=== PATIENT | male | born 1950 | race Caucasian/White ===

== ENCOUNTER → 2021-12-31 | Outpatient (CLI) | payer MEDICARE ==
[2021-12-31 18:40] LABS: Basophils # (A) 0.05 X 10*3/uL (0.00-0.10); Basophils % (A) 0.8 %; Eosinophils # (A) 0.21 X 10*3/uL (0.04-0.35); Eosinophils % (A) 3.3 %; HCT 45.6 % (39.6-50.0); HGB 15.3 g/dL (13.0-17.0); Immature Grans, Automated 0.3 %; Lymphocytes # (A) 1.61 X 10*3/uL (0.90-5.00); Lymphocytes % (A) 25.7 %; MCH 29.7 pg (27.0-32.0); MCHC 33.6 g/dL (32.0-37.0); MCV 88.5 fL (80.0-97.0); Mean Platelet Volume 12.2 fL (9.5-12.2); Monocytes # (A) 0.72 X 10*3/uL (0.20-1.00); Monocytes % (A) 11.5 %; NRBC Per 100 WBC 0 /100 WBCS (0.0-0.0); Neutrophils # (A) 3.66 X 10*3/uL (1.80-7.70); Neutrophils % (A) 58.4 %; Platelet Count 213 X 10*3/uL (140-440); RBC 5.15 X 10*6/uL (4.40-5.60); RDW 12.9 % (11.5-14.5); WBC 6.27 X 10*3/uL (4.50-10.00)
== END | disposition home or self-care (01) ==
LOC: LABPAT 14:06
PROVIDERS: ATTEND Surgery
DX: Z01.812 Encounter for preprocedural laboratory examination (principal); K40.90 Unilateral inguinal hernia, without obstruction or gangrene, not specified as recurrent
CPT/HCPCS: 85025; 93005

== ENCOUNTER 2022-01-08 05:47 | Day surgery (SDC) | payer MEDICARE ==
[2022-01-06 15:21] VITALS: BMI 34.2
[~2022-01-08 05:47] MED LIST: ACETAMINOPHEN TAB 500 MG TAB PO PRN; HEPARIN SODIUM,PORCINE/PF 5,000 UNIT/0.5 ML SYRINGE SQ PRN; LACTATED RINGERS 1,000 ML IV SCH
[2022-01-08] MEDS ORDERED: ONDANSETRON 4 MG/2 ML VIAL ONE (06:17)
[2022-01-08 06:43] VITALS: TEMP 97.3
[2022-01-08 06:46] LABS: Glucose,Whole Blood 152 mg/dL (75-99)
[2022-01-08] MEDS ORDERED: DEXAMETHASONE SOD PHOSPHATE 4 MG/ML 1 ML VIAL IVP ONE (06:47)
[2022-01-08] MEDS ORDERED: MIDAZOLAM 2 MG/2 ML VIAL IVP ONE (07:14)
[2022-01-08] MEDS ORDERED: fentaNYL (PF) 50 MCG/ML 2 ML AMP IVP ONE (07:14)
[2022-01-08] MEDS ORDERED: SUCCINYLCHOLINE CHLORIDE VIAL 200 MG/10 ML VIAL IV ONE (07:46)
[2022-01-08] MEDS ORDERED: fentaNYL (PF) 50 MCG/ML 2 ML AMP ONE (07:46)
[2022-01-08] MEDS ORDERED: ROCURONIUM 10 MG/ML (5 ML VIAL) IV ONE (07:46)
[2022-01-08] MEDS ORDERED: ROPIVACAINE 5 MG/ML 30 ML VIAL ONE (07:46)
[2022-01-08] MEDS ORDERED: HYDROmorphone (PF) 1 MG/ML ONE (07:46)
[2022-01-08] MEDS ORDERED: NEOSTIGMINE 1 MG/ML 10 ML VIAL ONE (07:46)
[2022-01-08] MEDS ORDERED: KETAMINE 10 MG/ML 20 ML VIAL ONE (07:46)
[2022-01-08] MEDS ORDERED: GLYCOPYRROLATE 0.2 MG/ML 2 ML VIAL ONE (07:46)
[2022-01-08] MEDS ORDERED: LIDOCAINE 2% INJ 20 MG/ML (2 ML VIAL) ONE (07:46)
[2022-01-08] MEDS ORDERED: KETOROLAC 15 MG/ML 1 ML VIAL ONE (07:46)
[2022-01-08] MEDS ORDERED: PROPOFOL 10 MG/ML 20 ML VIAL IV ONE (07:46)
[2022-01-08] MEDS ORDERED: PHENYLEPHRINE-0.9% NACL SYG 1,000 MCG/10 ML SYRINGE ONE (07:46)
[2022-01-08] MEDS ORDERED: SODIUM CHLORIDE 0.9% (PF) 10 ML VIAL ONE (07:46)
[2022-01-08] MEDS ORDERED: MIDAZOLAM 2 MG/2 ML VIAL ONE (07:46)
--- NOTE | 2022-01-08 08:15 | P.ANPRN ---
Procedure Note - Anesthesia - Nerve Block Performed Bilateral Erector Spinae Time Out Performed: Yes (:13) Date of Procedure: 01/08/22 Procedure Start Time: Procedure Stop Time: Location of Patient: PreOp Indication: Acute Post-Operative Pain, Requested by Surgeon (Dr Nuñez) Sedation Type: Sedate with meaningful contact maintained Preparation: Sterile Prep Position: Prone Catheter: None Needle Types: Pajunk Needle Gauge: 21 Ultrasound used to visualize needle placement: Yes Ultrasound used to observe medication spread: Yes Injectate: 0.5% Ropivacaine (see comment for volume) (15cc + 10cc PF Normal saline each side) Blood Aspirated: No Pain Paresthesia on Injection Noted: No Resistance on Injection: Normal Image Stored and Saved: Yes Events: Uneventful and Well Tolerated
[2022-01-08] MEDS ORDERED: BUPIVACAINE (PF) 0.25% 30 ML VIAL SQ ONE (08:39)
[2022-01-08] MEDS ORDERED: LACTATED RINGERS 1,000 ML IV ONE ×3 (09:09→10:50)
[2022-01-08] MEDS ORDERED: HYDROmorphone 0.5 MG/0.5 ML SYRINGE IVP ONE ×2 (10:08→10:39)
[2022-01-08 10:10] VITALS: RESP 16
[2022-01-08] MEDS ORDERED: KETOROLAC 15 MG/ML 1 ML VIAL IVP ONE (10:11)
--- NOTE | 2022-01-08 11:01 | P.GSHP ---
History of Present Illness H&P Date: 01/08/22 Chief Complaint: Large scrotal left inguinal hernia This a 71-year-old male who's had complaints of left inguinal pain. Patient is a large left inguinal hernia which extends of the scrotum. Patient presents today for laparoscopic robotic repair of left inguinal hernia. The patient aware that he may recurrent open repair to the sizes hernia and that he also may require orchiectomy in order to repair the hernia. 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 Past Anesthesia/Blood Transfusion Reactions: No Reported Reaction Additional Past Anesthesia/Blood Transfusion Reaction / Comment(s): no hx blood transfusion Smoking Status: Never smoker - Past Family History Brother(s) Additional Family Medical History / Comment(s): 1 brother with aneurysm in brain-,1 brother with aneurysm in heart Medications and Allergies Home Medications Medication Instructions Recorded Confirmed Type Atorvastatin [Lipitor] 40 mg PO DAILY 01/06/22 01/08/22 History Ibuprofen [Motrin] 800 mg PO Q6H PRN 01/06/22 01/08/22 History amLODIPine [Norvasc] 10 mg PO QAM 01/06/22 01/08/22 History Acetaminophen Tab [Tylenol] 650 mg PO Q6H #30 tab 01/08/22 Rx Docusate [Colace] 100 mg PO BID #20 capsule 01/08/22 Rx Ibuprofen [Motrin] 600 mg PO Q6HR PRN #40 tab 01/08/22 Rx oxyCODONE HCL [OxyIR] 5 mg PO Q6H PRN 3 Days #10 tab 01/08/22 Rx Allergies Allergy/AdvReac Type Severity Reaction Status Date / Time No Known Allergies Allergy Verified 01/08/22 06:24 Surgical - Exam Vital Signs Temp Pulse Resp BP Pulse Ox 97.3 F L 77 20 156/65 95 01/08/22 06:29 01/08/22 06:29 01/08/22 06:29 01/08/22 06:29 01/08/22 06:29 - General well developed, well nourished, no distress - Eyes PERRL - ENT normal pinna - Neck no masses - Respiratory normal expansion - Cardiovascular Rhythm: regular - Abdomen Abdomen: soft, non tender Hernia: inguinal (Large right inguinal hernia extending his scrotum) Results - Labs Abnormal Lab Results - Last 24 Hours (Table) 01/08/22 Range/Units 06:41 POC Glucose (mg/dL) 152 H (75-99) mg/dL
--- NOTE | 2022-01-08 11:08 | P.OP ---
Date of Procedure: 01/08/22 Preoperative Diagnosis: Right scrotal inguinal hernia Postoperative Diagnosis: Left inguinal hernia Incarcerated right inguinal hernia Procedure(s) Performed: Open repair of incarcerated right inguinal hernia with orchiectomy Laparoscopic robotic repair of left inguinal hernia Excision of cord lipoma Transversus abdominis plane block Anesthesia: SUKHJINDER Surgeon: Ricky Nuñez Pathology: other (Right cord lipoma, right orchiectomy) Condition: stable Disposition: PACU Description of Procedure: The patient's placed on the operating table in the supine position. The patient received general anesthesia. The patient's abdomen was prepped and draped in usual sterile fashion. The skin was anesthetized 1% local Xylocaine at the incision sites. Using an 11 blade a skin incision was made at the umbilicus. The fascia was grasped with a Brea and then the peritoneal cavity was entered with the Veress needle. Position of the Veress needle was confirmed with a positive drop test. After adequate insufflation a 5 mm trocar was placed into the peritoneal cavity. The Laparoscope was placed the peritoneal cavity. And a robotic 8 mm trocar was placed in the right lateral position and then another 8 mm robotic trochars placed in the left lateral position. The original 5 mm trocar was exchanged for a 12 mm trocar. The patient was placed in reverse Trendelenburg and then the patient was docked to the robot. A transversus abdominis plane block was performed in 4 quadrants using 1% local Xylocaine. The patient had bilateral inguinal hernias. The left inguinal hernia small. The right inguinal hernia was enlarged and contained sigmoid colon. Several attempts were made to reduce the colon however this wasn't possible. In order to prevent damage to the colon it was sized repair of the right inguinal hernia in open technique. Next the peritoneum over top of the left inguinal hernia was incised and then using blunt and sharp dissection and electrocautery the hernia sac was dissected free from the floor of the inguinal canal. The hernia sac was completely reduced into the peritoneal cavity. And then using the Pro cyber security analyst mesh the hernia was repaired. The peritoneum was then sutured with 20V lock suture. The patient was then undocked the robot. The needle was withdrawn from the peritoneal cavity. The umbilical trocar site was closed with 0 Ethibond suture. The skin was closed interrupted 3-0 Monocryl suture. Next, the skin was incised over the right groin. Using cautery and subcutaneous tissue divided. The fascia external oblique was exposed. The hernia was visualized. The hernia sac was then brought up from the scrotum. The hernia sac was quite large and contained incarcerated colon. The hernia sac was opened. The adhesions to the colon to the hernia sac were lysed sharply section. In the colon was slowly reduced into the pleural cavity. The hernia defect was quite large. It was approximately 10 cm in diameter. In order to provide an effective hernia repair was decided perform a right orchiectomy. The spermatic cord underwent a high ligation and was ligated between a Aditi clamp and divided. And then using 0 Vicryl suture stick tie was performed. The hernia sac was then divided in close. There was a cord lipoma was dissected free and sent to pathology. The Prolene mesh was then placed below the fascia and then the fascia external oblique was then closed using #1 Vicryl. Ross's fascia closed with 2-0 Vicryl suture. The skin was closed running 3-0 Monocryl suture. Dermabond dressing was applied. Patient was sent to recovery in stable condition.
[2022-01-08 11:13] VITALS: BP 118/62; PULSE 102
== END 2022-01-08 13:30 | disposition home or self-care (01) ==
LOC: OR 05:47
PROVIDERS: ATTEND Surgery
DX: K40.20 Bilateral inguinal hernia, without obstruction or gangrene, not specified as recurrent (principal); K40.30 Unilateral inguinal hernia, with obstruction, without gangrene, not specified as recurrent; E78.5 Hyperlipidemia, unspecified; I10 Essential (primary) hypertension; Z79.1 Long term (current) use of non-steroidal anti-inflammatories (NSAID); G89.18 Other acute postprocedural pain
CPT/HCPCS: 49587; 49650; S2900; 64999; 86850; 86900; 86901; 88304; 88305

== ENCOUNTER → 2022-06-18 | Outpatient (CLI) | payer MEDICARE ==
[2022-06-18 14:21] LABS: African American GFR (CKD) >90 (>60 ml/min/1.73 sqM); Blood Urea Nitrogen 22 mg/dL (9-20); Non-African American GFR(CKD) 81 (>60 ml/min/1.73 sqM)
--- NOTE | 2022-06-18 15:16 | CT ---
EXAMINATION TYPE: CT urogram wo/w con DATE OF EXAM: 06/18/2022 COMPARISON: none HISTORY: Gross hematuria, one episode CT DLP: 2551 mGycm CONTRAST: Performed and without and with IV Contrast, patient injected with 100 mL of Isovue 370. CT Urography was performed with unenhanced followed by enhanced images of the kidneys, ureters and ur inary bladder. Delayed images were obtained. 3d reconstruction was performed at a separate work sta tion. FINDINGS: KIDNEYS/BLADDER: No hydronephrosis. No nephrolithiasis. No district renal mass. Urinary bladder gr ossly unremarkable. LUNG BASES-: No visible nodule. No infiltrate. LIVER/GB: No calcified gallstones. Simple cyst posterior segment right hepatic lobe measures approx imately 2.2 cm. Biliary tree is of normal caliber. PANCREAS: No inflammation. No distinct mass. SPLEEN: No splenic enlargement. No lesion seen. ADRENALS: No nodule. No thickening. BOWEL: Normal appendix. Normal bowel caliber. No inflammation. GENITAL ORGANS: No gross abnormality. LYMPH NODES: No greater than 1cm abdominal or pelvic lymph nodes are appreciated. AORTA: No significant abnormality. OSSEOUS STRUCTURES: No significant abnormality is seen. OTHER: No significant additional abnormality is seen. IMPRESSION: 1. No discrete abnormality to account for the patient's symptoms. Procedure material. Correlate clini carrie.
== END | disposition home or self-care (01) ==
LOC: RADCTMAIN 13:45
PROVIDERS: ATTEND Urology
DX: R31.0 Gross hematuria (principal)
CPT/HCPCS: 82565; 84520; 74178; 36415; 74400; Q9967